=== PATIENT | female | born 1985 | race Caucasian/White ===

== ENCOUNTER → 2016-06-19 | Outpatient (CLI) | payer OTHER | END | disposition home or self-care (01) | LOC: LABWHC1 10:49 | PROVIDERS: ATTEND Obstetrics & Gynecology | DX: N91.2 Amenorrhea, unspecified (principal) | CPT/HCPCS: 36415; 84443 ==

== ENCOUNTER 2020-01-31 16:51 | Emergency (ER) | payer OTHER ==
[2020-01-31 16:54] VITALS: RESP 18
--- NOTE | 2020-01-31 17:58 | ED ---
General Adult HPI - General Chief complaint: Extremity Problem,Nontraumatic Stated complaint: Leg Pain Time Seen by Provider: 01/31/20 16:57 Source: patient, RN notes reviewed Mode of arrival: ambulatory Limitations: no limitations - History of Present Illness Initial comments: 34-year-old female presents to the emergency room for a chief complaint of left calf pain. Patient reports that she has had left calf pain since this morning. Patient states 5 days ago she had a [address] to [place]. States she drove back 6 hours yesterday. This morning is when she noticed the pain and swelling to her calf. Her friend told her it could be a blood clot so she came into the ER. Patient denies any shortness of breath or chest pain.Patient has no other complaints at this time including shortness of breath, chest pain, abdominal pain, nausea or vomiting, headache, or visual changes. - Related Data Home Medications Medication Instructions Recorded Confirmed No Known Home Medications 01/31/20 01/31/20 Allergies Allergy/AdvReac Type Severity Reaction Status Date / Time Penicillins Allergy Intermediate Rash/Hives Verified 01/31/20 18:39 cefaclor [From Ceclor] Allergy Unknown Rash/Hives Verified 01/31/20 18:39 Review of Systems ROS Statement: Those systems with pertinent positive or pertinent negative responses have been documented in the HPI. ROS Other: All systems not noted in ROS Statement are negative. Past Medical History Past Medical History: Osteoarthritis (OA) Additional Past Medical History / Comment(s): BULGING DISC, IRREGULAR MENSTRUAL PERIODS History of Any Multi-Drug Resistant Organisms: MRSA Date of last positivie culture/infection: 08/27/15 MDRO Source:: LEFT ARM Past Surgical History: Adenoidectomy, Section, Cholecystectomy, Tonsillectomy Additional Past Surgical History / Comment(s): T & A A CHILD, BUNIONECTOMY X2 RT & X1 LT, CERVICAL CONE BX. Past Anesthesia/Blood Transfusion Reactions: No Reported Reaction Past Psychological History: ADD/ADHD, Anxiety Smoking Status: Never smoker Past Alcohol Use History: None Reported Past Drug Use History: None Reported - Past Family History Mother Additional Family Medical History / Comment(s): heart blockages, fibroids to ovaries General Exam Limitations: no limitations General appearance: alert, in no apparent distress Head exam: Present: atraumatic, normocephalic, normal inspection Eye exam: Present: normal appearance, PERRL, EOMI. Absent: scleral icterus, conjunctival injection, periorbital swelling ENT exam: Present: normal exam, mucous membranes moist Neck exam: Present: normal inspection, full ROM. Absent: tenderness, meningismus, lymphadenopathy Respiratory exam: Present: normal lung sounds bilaterally. Absent: respiratory distress, wheezes, rales, rhonchi, stridor Cardiovascular Exam: Present: regular rate, normal rhythm, normal heart sounds. Absent: systolic murmur, diastolic murmur, rubs, gallop, clicks GI/Abdominal exam: Present: soft, normal bowel sounds. Absent: distended, tenderness, guarding, rebound, rigid Extremities exam: Present: full ROM (Full range of motion left lower extremity.), normal capillary refill (Capillary refill less than 2 seconds, DP pulse and PT pulse 2+ in the left lower extremity.), calf tenderness (Calf tenderness noted in the left lower extremity, minimal edema, no erythema.), other (Sensation intact left lower extremity.). Absent: tenderness, pedal edema, joint swelling Course Vital Signs 01/31/20 01/31/20 16:52 18:04 Temperature 98.3 F Pulse Rate 111 H 89 Respiratory 18 Rate Blood Pressure 146/95 O2 Sat by Pulse 99 97 Oximetry Medical Decision Making - Medical Decision Making Neurovascular status intact in the left lower extremity. Minimal calf tenderness and edema. No erythema or increased warmth. No evidence of infection. Ultrasound shows no evident DVT. Patient does not recall any injury. Patient may have cystoscopy in the knee or strain. Recommend she follow up with her doctor. I will also give her follow-up to orthopedics. She will return here for any worsening symptoms. Disposition Clinical Impression: Calf pain Disposition: HOME SELF-CARE Condition: Good Instructions (If sedation given, give patient instructions): Leg Pain (ED) Additional Instructions: Please take Motrin and Tylenol for pain. Please follow-up with your doctor in one to 2 days. You may also follow up with orthopedics. Return for any worsening symptoms. Is patient prescribed a controlled substance at d/c from ED?: No Referrals: Lauren Potter DO [Primary Care Provider] - 1-2 days Mendez Jovel DO [Doctor of Osteopathic Medicine] - 1-2 days Time of Disposition: 19:08
--- NOTE | 2020-01-31 18:37 | US ---
EXAMINATION TYPE: US venous doppler duplex LE LT DATE OF EXAM: 01/31/2020 6:28 PM COMPARISON: NONE CLINICAL HISTORY: dvt?. left leg pain SIDE PERFORMED: left TECHNIQUE: The lower extremity deep venous system is examined utilizing real time linear array sonog dwain with graded compression, doppler sonography and color-flow sonography. VESSELS IMAGED: Common Femoral Vein Deep Femoral Vein Greater Saphenous Vein * Femoral Vein Popliteal Vein Small Saphenous Vein * Proximal Calf Veins (* superficial vessels) There is normal flow, compressibility, vascular waveforms. Left Leg: No evidence of DVT IMPRESSION: No evident deep venous thrombosis at or above the left knee
[2020-01-31 19:23] VITALS: BP 117/69; PULSE 69; TEMP 98
== END 2020-01-31 19:31 | disposition home or self-care (01) ==
LOC: EC 16:51
DX: M79.662 Pain in left lower leg (principal); R60.0 Localized edema; Z88.0 Allergy status to penicillin; Z88.1 Allergy status to other antibiotic agents; Z86.14 Personal history of Methicillin resistant Staphylococcus aureus infection; X50.3XXA Overexertion from repetitive movements, initial encounter
CPT/HCPCS: 99283

== ENCOUNTER → 2020-02-01 | Outpatient (CLI) | payer OTHER | END | disposition home or self-care (01) | LOC: LABWHC1 11:52 | PROVIDERS: ATTEND Family Medicine | DX: Z01.818 Encounter for other preprocedural examination (principal) | CPT/HCPCS: U0003; C9803 ==

== ENCOUNTER 2020-05-07 10:52 | Emergency (ER) | payer OTHER ==
[2020-05-07 10:58] VITALS: RESP 18; TEMP 98.1
--- NOTE | 2020-05-07 11:01 | ED ---
Chest Pain HPI - General Chief Complaint: Chest Pain Stated Complaint: Chest and Abdominal pain Time Seen by Provider: 05/07/20 10:59 Source: patient Mode of arrival: ambulatory Limitations: no limitations - History of Present Illness Initial Comments: 34-year-old male presents to the emergency department with a chief complaint of abdominal pain. States the pain began this morning located in the epigastric abdominal region without any radiation. States the pain is constant and sharp in nature. Patient reports the pain does not appear to the postprandial period she does feel nauseated but did eat without any difficulties. No vomiting or diarrhea. History of cholecystectomy from several years ago. Also has tubal ligation. Denies any hematuria, hematochezia or melena. Patient does have history of GERD, she took Protonix and famotidine with no significant improvement in symptoms. Denies any fevers or chills. Denies any chest pain or shortness of breath.patient concerned for hiatal hernia - Related Data Home Medications Medication Instructions Recorded Confirmed Famotidine 20 mg PO DAILY 05/07/20 05/07/20 Omeprazole 20 mg PO DAILY 05/07/20 05/07/20 Allergies Allergy/AdvReac Type Severity Reaction Status Date / Time Penicillins Allergy Intermediate Rash/Hives Verified 05/07/20 11:52 cefaclor [From Ceclor] Allergy Unknown Rash/Hives Verified 05/07/20 11:52 Review of Systems ROS Statement: Those systems with pertinent positive or pertinent negative responses have been documented in the HPI. ROS Other: All systems not noted in ROS Statement are negative. EKG Findings - EKG Comments: EKG Findings:: Sinus rhythm with no ST or T-wave changes. Ventricular rate 67, ND 186, QRS 86, QTC 339. Past Medical History Past Medical History: Osteoarthritis (OA) Additional Past Medical History / Comment(s): BULGING DISC, IRREGULAR MENSTRUAL PERIODS History of Any Multi-Drug Resistant Organisms: MRSA Date of last positivie culture/infection: 08/27/15 MDRO Source:: LEFT ARM Past Surgical History: Adenoidectomy, Section, Cholecystectomy, Tonsillectomy Additional Past Surgical History / Comment(s): T & A A CHILD, BUNIONECTOMY X2 RT & X1 LT, CERVICAL CONE BX. Past Anesthesia/Blood Transfusion Reactions: No Reported Reaction Past Psychological History: ADD/ADHD, Anxiety Smoking Status: Never smoker Past Alcohol Use History: None Reported Past Drug Use History: None Reported - Past Family History Mother Additional Family Medical History / Comment(s): heart blockages, fibroids to ovaries General Exam Limitations: no limitations General appearance: alert, in no apparent distress, obese Head exam: Present: atraumatic, normocephalic, normal inspection Eye exam: Present: normal appearance, PERRL, EOMI Pupils: Present: normal accommodation ENT exam: Present: normal exam, normal oropharynx, mucous membranes moist Neck exam: Present: normal inspection, full ROM. Absent: tenderness, lymphadenopathy Respiratory exam: Present: normal lung sounds bilaterally. Absent: respiratory distress, wheezes, rales, rhonchi, stridor, chest wall tenderness (No reproducible chest pain) Cardiovascular Exam: Present: regular rate, normal rhythm, normal heart sounds GI/Abdominal exam: Present: soft, tenderness (Epigastric abdominal tenderness). Absent: distended, guarding, rebound, rigid Extremities exam: Present: normal inspection, full ROM, normal capillary refill. Absent: tenderness, pedal edema Back exam: Present: normal inspection, full ROM. Absent: tenderness, CVA tenderness (R), CVA tenderness (L) Neurological exam: Present: alert, oriented X3, normal gait Psychiatric exam: Present: normal affect, normal mood Skin exam: Present: warm, dry, intact, normal color Course Vital Signs 05/07/20 10:55 Temperature 98.1 F Pulse Rate 79 Respiratory 18 Rate Blood Pressure 130/77 O2 Sat by Pulse 98 Oximetry Chest Pain MDM - MDM 34-year-old female presents to emergency Department with a chief complaint abdominal pain. On physical examination, epigastric abdominal tenderness. She doesn't have a gallbladder. CBC unremarkable. CMP reveals mild transaminitis. UA unremarkable. EKG was showing a sinus rhythm with no ST or T-wave changes. CT abdomen and pelvis reveals no acute processes. There is a concern for hiatal hernia. Patient is still able to tolerate orals. Patient was given IV fluids, GI cocktail. On reevaluation, she did report some improvement in symptoms but not fully resolved. She was given tramadol. Will be discharged with the tramadol starter pack. Advised to follow with the primary care physician. Strict return parameters were thoroughly discussed the patient is understanding and agreeable. Case discussed with Dr. Singleton. Disposition Clinical Impression: Epigastric abdominal pain Disposition: HOME SELF-CARE Condition: Stable Instructions (If sedation given, give patient instructions): Hiatal Hernia (DC) Additional Instructions: Follow-up with the primary care physician. Return to emergency department if symptoms worsen. Is patient prescribed a controlled substance at d/c from ED?: No Referrals: Lauren Potter DO [Primary Care Provider] - 1-2 days Time of Disposition: 13:15
[2020-05-07] MEDS ORDERED: ONDANSETRON 4 MG/2 ML VIAL IVP STA (11:10)
[2020-05-07] MEDS ORDERED: SODIUM CHLORIDE 0.9% 1,000 ML IV STA (11:10)
[2020-05-07] MEDS ORDERED: MAG HYDROX/AL HYDROX/SIMETH 30 ML, HYOSCYAMINE ELIXIR 10 ML, LIDOCAINE VISCOUS 2% 10 ML PO STA ×3 (11:11)
[2020-05-07 11:54] LABS: ALT 43 U/L (4-34); AST 44 U/L (14-36); African American GFR (CKD) >90 (>60 ml/min/1.73 sqM); Albumin 4.6 g/dL (3.5-5.0); Alkaline Phosphatase 116 U/L (38-126); Amylase 76 U/L (30-110); Anion Gap 8 mmol/L; Blood Urea Nitrogen 13 mg/dL (7-17); Calcium 9.3 mg/dL (8.4-10.2); Carbon Dioxide 25 mmol/L (22-30); Chloride 105 mmol/L (98-107); Glucose 114 mg/dL (74-99); Lipase 65 U/L (23-300); Non-African American GFR(CKD) >90 (>60 ml/min/1.73 sqM); Potassium 4.5 mmol/L (3.5-5.1); Sodium 138 mmol/L (137-145); Total Bilirubin 0.9 mg/dL (0.2-1.3); Total Protein 8.3 g/dL (6.3-8.2)
[2020-05-07 12:07] LABS: Appearance,Urine Cloudy (Clear); Bacteria,Urine Rare /hpf; Bilirubin,Urine Negative (Negative); Blood,Urine Negative (Negative); Color,Urine Yellow; Glucose,Urine (UA) Negative (Negative); Ketones,Urine Negative (Negative); Leukocyte Esterase,Urine Negative (Negative); Mucus,Urine Rare /hpf; Nitrite,Urine Negative (Negative); PH, Urine 6.5 (5.0-8.0); Protein,Urine Negative (Negative); RBC,Urine 2 /hpf (0-5); Specific Gravity,Urine 1.022 (1.001-1.035); Squamous Epithelial Cell,Urine 5 /hpf (0-4); Urobilinogen,Urine <2.0 mg/dL (<2.0); WBC,Urine 3 /hpf (0-5)
[2020-05-07 12:09] LABS: HCT 40.6 % (34.0-46.0); HGB 14.1 gm/dL (11.4-16.0); MCH 29.4 pg (25.0-35.0); MCHC 34.7 g/dL (31.0-37.0); MCV 84.7 fL (80.0-100.0); Mean Platelet Volume 7.6; Platelet Count 283 k/uL (150-450); RDW 13.7 % (11.5-15.5); WBC 8.8 k/uL (3.8-10.6)
[2020-05-07] MEDS ORDERED: traMADol 50 MG TAB PO STA (12:17)
[2020-05-07] MEDS ORDERED: diphenhydrAMINE 50 MG/ML 1 ML VIAL IVP STA (12:18)
[2020-05-07] MEDS ORDERED: FAMOTIDINE 20 MG/2 ML VIAL IV STA (12:18)
[2020-05-07] MEDS ORDERED: methylPREDNISolone SOD SUCCI 125 MG/2 ML VIAL IV STA (12:18)
[2020-05-07 12:50] LABS: Band Neutrophils % 1 %; Eosinophils # (M) 0.18 k/uL (0-0.7); Monocytes # (M) 0.44 k/uL (0-1.0); Neutrophils % (M) 59 %; Nucleated Red Blood Cells 0 /100 WBC (0-0); Total Cells Counted 100
--- NOTE | 2020-05-07 13:01 | CT ---
EXAMINATION TYPE: CT abdomen pelvis w con DATE OF EXAM: 05/07/2020 COMPARISON: None HISTORY: Left sided numbness and dizziness CT DLP: 1705.2 mGycm Automated exposure control for dose reduction was used. TECHNIQUE: Helical acquisition of images was performed from the lung bases through the pelvis. CONTRAST: Performed without Oral Contrast and with IV Contrast, patient injected with 100 mL of Isovue 300. FINDINGS: LUNG BASES: No significant abnormality is appreciated. LIVER/GB: No significant abnormality is appreciated. There is surgical absence of the gallbladder PANCREAS: No significant abnormality is seen. SPLEEN: No significant abnormality is seen. ADRENALS: No significant abnormality is seen. KIDNEYS: No significant abnormality is seen. FREE AIR: No free air is visualized. RETROPERITONEAL ADENOPATHY: None visualized REPRODUCTIVE ORGANS: No significant abnormality is seen URINARY BLADDER: No significant abnormality is seen. PELVIC ADENOPATHY: None visualized. OSSEOUS STRUCTURES: No significant abnormality is seen. BOWEL: No significant abnormality is seen. IMPRESSION: STATUS POST CHOLECYSTECTOMY. NO SIGNIFICANT ABNORMALITY SEEN.
[2020-05-07] MEDS ORDERED: traMADol 50 MG STARTER PACK 3 TAB BTL PO STA (13:25)
[2020-05-07 13:34] VITALS: BP 125/55; PULSE 61
== END 2020-05-07 13:34 | disposition home or self-care (01) ==
LOC: EC 10:52
DX: R10.13 Epigastric pain (principal); K21.9 Gastro-esophageal reflux disease without esophagitis; M19.90 Unspecified osteoarthritis, unspecified site; Z90.49 Acquired absence of other specified parts of digestive tract; Z90.09 Acquired absence of other part of head and neck
CPT/HCPCS: 36415; 93005; 80053; 82150; 83690; 85025; 81001; 81025; 74177; 99284; 96374; 96361; J2405; Q9967

== ENCOUNTER 2020-06-29 09:12 | Day surgery (SDC) | payer OTHER ==
[2020-06-27 10:07] VITALS: BMI 43.9
[~2020-06-29 09:12] MED LIST: LACTATED RINGERS 1,000 ML IV SCH
[2020-06-29 09:42] VITALS: TEMP 98.3
[2020-06-29] MEDS ORDERED: LIDOCAINE 1% (10MG/ML) FOR IV START INTRADERMA ONE (09:45)
--- NOTE | 2020-06-29 10:53 | P.GSHP ---
History of Present Illness H&P Date: 06/29/20 Chief Complaint: Epigastric pain Is a 35-year-old female presents today for EGD. She's had complaints of epigastric pain. Past Medical History Past Medical History: Asthma, GERD/Reflux, Osteoarthritis (OA) Additional Past Medical History / Comment(s): HX OF EXERCISE INDUCED ASTHMA., BULGING DISC, , LOOSE STOOLS SINCE GALL BLADDER REMOVED. States has a Hiatal Hernia. 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 Past Anesthesia/Blood Transfusion Reactions: No Reported Reaction Smoking Status: Never smoker - Past Family History Sister(s) Family Medical History: Blood Disorder Additional Family Medical History / Comment(s): ITP, SPLEEN REMOVED Medications and Allergies Home Medications Medication Instructions Recorded Confirmed Type Famotidine 20 mg PO DAILY 05/07/20 06/27/20 History Omeprazole 20 mg PO DAILY 05/07/20 06/27/20 History Allergies Allergy/AdvReac Type Severity Reaction Status Date / Time Penicillins Allergy Intermediate Rash/Hives Verified 06/29/20 09:32 cefaclor [From Ceclor] Allergy Unknown Rash/Hives Verified 06/29/20 09:32 Surgical - Exam Vital Signs Temp Pulse Resp BP Pulse Ox 98.3 F 70 18 136/60 99 06/29/20 09:38 06/29/20 09:38 06/29/20 09:38 06/29/20 09:38 06/29/20 09:38 - General well developed, well nourished, no distress - Eyes PERRL - ENT normal pinna - Neck no masses - Respiratory normal expansion - Cardiovascular Rhythm: regular - Abdomen Abdomen: soft, non tender Assessment and Plan Assessment: Epigastric pain. We'll perform EGD.
[2020-06-29] MEDS ORDERED: PROPOFOL 10 MG/ML 20 ML VIAL IV ONE (10:57)
[2020-06-29] MEDS ORDERED: LIDOCAINE 1% INJ 10MG/ML (20 ML MDV) ONE (10:57)
--- NOTE | 2020-06-29 11:01 | P.OP ---
Date of Procedure: 06/29/20 Preoperative Diagnosis: Epigastric pain Postoperative Diagnosis: GERD Hiatal hernia Esophagitis Procedure(s) Performed: EGD Anesthesia: MAC Surgeon: Kevin Hagan Pathology: other (Antrum, esophagus) Condition: stable Disposition: PACU Description of Procedure: The patient's placed on the endoscopy table in the lateral position. She received IV sedation. The gastro-/oropharynx passed in the esophagus into the stomach. Scope was placed through the pylorus. The first and second portion duodenum appeared normal. Scope was then brought back the antrum this. Mildly inflamed. A biopsies performed. The scope was unretroflexed and the remainder of the stomach appeared normal. The patient had a small hiatal hernia. The GE junction was at 38 cm. The distal esophagus appeared inflamed and a biopsies performed. The proximal esophagus appeared normal. Scope was withdrawn for patient.
[2020-06-29 11:53] VITALS: BP 126/82; PULSE 76; RESP 16
== END 2020-06-29 11:34 | disposition home or self-care (01) ==
LOC: ORWHC2ENDO 09:12
PROVIDERS: ATTEND Surgery
DX: K29.50 Unspecified chronic gastritis without bleeding (principal); K44.9 Diaphragmatic hernia without obstruction or gangrene; K21.9 Gastro-esophageal reflux disease without esophagitis; M19.90 Unspecified osteoarthritis, unspecified site; J45.990 Exercise induced bronchospasm; Z86.2 Personal history of diseases of the blood and blood-forming organs and certain disorders involving the immune mechanism; Z86.14 Personal history of Methicillin resistant Staphylococcus aureus infection; Z90.89 Acquired absence of other organs; Z98.891 History of uterine scar from previous surgery; Z90.49 Acquired absence of other specified parts of digestive tract; Z98.890 Other specified postprocedural states; Z83.2 Family history of diseases of the blood and blood-forming organs and certain disorders involving the immune mechanism; Z79.899 Other long term (current) drug therapy; Z88.1 Allergy status to other antibiotic agents; Z88.0 Allergy status to penicillin
CPT/HCPCS: 81025; 88305; 88342; 43239; J2001; J2704

== ENCOUNTER → 2020-07-19 | Outpatient (CLI) | payer OTHER ==
[2020-07-19 15:19] LABS: Basophils % (A) 0 %; Eosinophils # (A) 0.1 k/uL (0-0.7); Eosinophils % (A) 1 %; HCT 38.1 % (34.0-46.0); HGB 13.6 gm/dL (11.4-16.0); Lymphocytes # (A) 2.6 k/uL (1.0-4.8); Lymphocytes % (A) 28 %; MCH 30.5 pg (25.0-35.0); MCHC 35.6 g/dL (31.0-37.0); MCV 85.5 fL (80.0-100.0); Mean Platelet Volume 7.6; Monocytes # (A) 0.5 k/uL (0-1.0); Monocytes % (A) 6 %; Neutrophils # (A) 5.9 k/uL (1.3-7.7); Neutrophils % (A) 64 %; Platelet Count 287 k/uL (150-450); RBC 4.45 m/uL (3.80-5.40); RDW 13.3 % (11.5-15.5); WBC 9.2 k/uL (3.8-10.6)
== END | disposition home or self-care (01) ==
LOC: LABPAT 13:59
PROVIDERS: ATTEND Surgery
DX: Z01.812 Encounter for preprocedural laboratory examination (principal)
CPT/HCPCS: 36415; 85025

== ENCOUNTER 2020-07-21 08:06 | Day surgery (SDC) | payer OTHER ==
[~2020-07-21 08:06] MED LIST changes: +ACETAMINOPHEN TAB 500 MG TAB PO PRN; +CLINDAMYCIN 900 MG in DEXTROSE 5% IN WATER 50 ML IVPB PRN; +GENTAMICIN 340 MG in SODIUM CHLORIDE 0.9% 100 ML IVPB PRN; +HEPARIN SODIUM,PORCINE/PF 5,000 UNIT/0.5 ML SYRINGE SQ PRN; -LACTATED RINGERS 1,000 ML IV SCH; +MIDAZOLAM 2 MG/2 ML VIAL IV PRN; +SCOPOLAMINE 1.5MG/72HR PATCH TRANSDERM ONE
[2020-07-21] MEDS: LACTATED RINGERS 1,000 ML IV SCH ×2 (08:54→09:54)
[2020-07-21] MEDS: ONDANSETRON 4 MG/2 ML VIAL IVP ONE ×2 (09:03→15:08)
[2020-07-21] MEDS: DEXAMETHASONE SOD PHOSPHATE 4 MG/ML 1 ML VIAL IV ONE ×2 (09:03→15:01)
--- NOTE | 2020-07-21 09:06 | P.GSHP ---
History of Present Illness H&P Date: 07/21/20 Chief Complaint: GERD This a 35-year-old female coming to GERD. Patient sees Dr. Sharma as outpatient.The patient has had long-standing problems with reflux esophagitis. The patient underwent recent EGD is found have evidence of esophagitis. Patient has been well informed on the procedure of laparoscopic Alex fundoplication. The patient is aware the risk of the conversion to the open procedure, risk of injury to the stomach, liver and spleen. The patient is also a risk of recurrent GERD and dysphagia symptoms. The patient understands there is a postoperative diet of full liquids for 2 weeks after surgery. Past Medical History Past Medical History: Asthma, GERD/Reflux, Osteoarthritis (OA) Additional Past Medical History / Comment(s): HX OF EXERCISE INDUCED ASTHMA., BULGING DISC, LOOSE STOOLS SINCE GALL BLADDER REMOVED. History of Any Multi-Drug Resistant Organisms: MRSA Date of last positivie culture/infection: 08/27/15 MDRO Source:: LEFT ARM Past Surgical History: Adenoidectomy, Section, Cholecystectomy, Tonsillectomy Additional Past Surgical History / Comment(s): EGD, T & A A CHILD, BUNIONECTOMY X2, CERVICAL CONE BX. Past Anesthesia/Blood Transfusion Reactions: No Reported Reaction Smoking Status: Never smoker - Past Family History Mother Family Medical History: No Reported History Additional Family Medical History / Comment(s): . Father Family Medical History: No Reported History Sister(s) Family Medical History: Blood Disorder Additional Family Medical History / Comment(s): ITP, SPLEEN REMOVED Medications and Allergies Home Medications Medication Instructions Recorded Confirmed Type Famotidine 20 mg PO DAILY 05/07/20 07/21/20 History Omeprazole 20 mg PO DAILY 05/07/20 07/21/20 History Allergies Allergy/AdvReac Type Severity Reaction Status Date / Time Penicillins Allergy Intermediate Rash/Hives Verified 07/21/20 08:36 cefaclor [From [facility]] Allergy Unknown Rash/Hives Verified 07/21/20 08:36 Surgical - Exam Vital Signs Temp Pulse Resp BP Pulse Ox 97.2 F L 69 20 141/81 98 07/21/20 08:41 07/21/20 08:41 07/21/20 08:41 07/21/20 08:41 07/21/20 08:41 - General well developed, well nourished, no distress - Eyes PERRL - ENT normal pinna - Neck no masses - Respiratory normal expansion - Cardiovascular Rhythm: regular - Abdomen Abdomen: soft, non tender Assessment and Plan Assessment: GERD. We'll perform laparoscopic Alex fundoplication.
[2020-07-21] MEDS ORDERED: MIDAZOLAM 2 MG/2 ML VIAL ONE (09:55)
[2020-07-21] MEDS ORDERED: SUCCINYLCHOLINE CHLORIDE 100 MG/5 ML SYR IV ONE (09:55)
[2020-07-21] MEDS ORDERED: KETOROLAC 15 MG/ML 1 ML VIAL ONE (09:55)
[2020-07-21] MEDS ORDERED: NEOSTIGMINE 1 MG/ML 10 ML VIAL ONE (09:55)
[2020-07-21] MEDS ORDERED: PROPOFOL 10 MG/ML 20 ML VIAL IV ONE (09:55)
[2020-07-21] MEDS ORDERED: ROCURONIUM 10 MG/ML (5 ML VIAL) IV ONE (09:55)
[2020-07-21] MEDS ORDERED: LIDOCAINE 1% INJ 10MG/ML (20 ML MDV) ONE (09:55)
[2020-07-21] MEDS ORDERED: fentaNYL (PF) 50 MCG/ML 2 ML AMP ONE (09:55)
[2020-07-21] MEDS ORDERED: GLYCOPYRROLATE 0.2 MG/ML 2 ML VIAL ONE (09:55)
[2020-07-21] MEDS ORDERED: BUPIVACAIN-EPI 0.5%-1:200,000 30 ML VIAL SQ ONE (10:23)
[2020-07-21] MEDS ORDERED: ONDANSETRON 4 MG/2 ML VIAL IVP PRN (11:06)
--- NOTE | 2020-07-21 11:06 | P.OP ---
Date of Procedure: 07/21/20 Preoperative Diagnosis: GERD Postoperative Diagnosis: GERD Procedure(s) Performed: Laparoscopic Alex fundoplication Anesthesia: MAC Surgeon: Kevin Hagan Estimated Blood Loss (ml): 5 Pathology: none sent Condition: stable Disposition: PACU Description of Procedure: The patient was placed on the operating table in the supine position. The patient received general anesthesia. And was placed in dorsal lithotomy position. The patient was prepped and draped in the usual sterile fashion. The skin incision sites were anesthetized with 1% local Xylocaine. The skin was incised in the left periumbilical area and then using a blade less 5 mm trocar under direct visualization panel cavity was entered. After adequate insufflation the laparoscope was then placed into the peritoneal cavity. Next a 5 mm trochars placed in the right epigastric position. Another 5 millimeter trocar the right lateral position. Another 5 millimeter trocar in the left lateral position a 5 mm trocar is placed in the left epigastric position. And then the initial 5 mm trocar was exchanged for a 10 mm trocar. The left lateral lobe liver was retracted. The hernia was seen. The crural defect was then dissected using the Harmonic scissors device. A 360 crural dissection was perf ormed the esophagus stomach was reduced back into the peritoneal Cavity. The crural defect was then closed using 2-0 Ethibond suture. Next the fundus of the stomach was mobilized using the [place] scissors device. and then a 58-[place]oven[place] bougie dilator was placed oropharynx passed into the esophagus and stomach the fundal plication wrap was then performed by grasping the fundus posteriorly and bringing it around the esophagus and stomach fundoplication was then performed using 2-0 Ethibond suture. Care was taken that the fundal location rested over top of the intra-abdominal esophagus. There was no injury seen to the stomach or esophagus. The dilator was then withdrawn. The abdomen was irrigated there is no bleeding seen. The trochars were then withdrawn and then skin incision sites were closed using 3-0 Monocryl suture Steri-Strips are applied. Patient thought procedure well and sent to recovery room in stable condition.
[2020-07-21] MEDS: HYDROmorphone 0.5 MG/0.5 ML SYRINGE IVP PRN ×2 (11:29→11:40)
[2020-07-21 14:37] VITALS: BMI 43.0
[2020-07-21] MEDS: DEXAMETHASONE SOD PHOSPHATE 4 MG/ML 1 ML VIAL IV SCH ×3 (15:07→23:50)
[2020-07-21] MEDS: METOCLOPRAMIDE 5 MG/ML 2 ML VIAL IVP SCH ×3 (15:07→23:50)
[2020-07-21] MEDS: D5-0.45% NACL WITH KCL 20MEQ/L 1,000 ML IV SCH ×2 (15:08→22:52)
--- NOTE | 2020-07-21 17:15 | P.CONS ---
History of Present Illness - Reason for Consult Perioperative complication management - History of Present Illness Patient is a pleasant 35-year-old female was admitted with the uncontrolled gastroesophageal reflux disease for elective Alex's fundoplication. Patient subsequently underwent surgery patient was having some pain in the shoulder blade area secondary to the gas insufflation during surgery. Patient denied any fever chills nausea vomiting and vomiting dysuria abdominal surgical sites are clean. Review of Systems REVIEW OF SYSTEMS: CONSTITUTIONAL: No fever, no malaise, no fatigue. HEENT: No recent visual problems or hearing problems. Denied any sore throat. CARDIOVASCULAR: No chest pain, orthopnea, PND, no palpitations, no syncope. PULMONARY: No shortness of breath, no cough, no hemoptysis. GASTROINTESTINAL: No diarrhea, no nausea, no vomiting, no abdominal pain. NEUROLOGICAL: No headaches, no weakness, no numbness. HEMATOLOGICAL: Denies any bleeding or petechiae. GENITOURINARY: Denies any burning micturition, frequency, or urgency. MUSCULOSKELETAL/RHEUMATOLOGICAL: Denies any joint pain, swelling, or any muscle pain. ENDOCRINE: Denies any polyuria or polydipsia. The rest of the 14-point review of systems is negative. Past Medical History Past Medical History: Asthma, GERD/Reflux, Osteoarthritis (OA) Additional Past Medical History / Comment(s): HX OF EXERCISE INDUCED ASTHMA., BULGING DISC, LOOSE STOOLS SINCE GALL BLADDER REMOVED. History of Any Multi-Drug Resistant Organisms: MRSA Year Discovered:: 08/27/15 MDRO Source:: LEFT ARM Past Surgical History: Adenoidectomy, Section, Cholecystectomy, Tonsillectomy Additional Past Surgical History / Comment(s): EGD, T & A A CHILD, BUNIONECTOMY X2, CERVICAL CONE BX. Past Anesthesia/Blood Transfusion Reactions: No Reported Reaction Past Psychological History: Anxiety Additional Psychological History / Comment(s): "MOOD PROBLEMS" Smoking Status: Never smoker Past Alcohol Use History: Rare Past Drug Use History: None Reported - Past Family History Mother Family Medical History: No Reported History Additional Family Medical History / Comment(s): . Father Family Medical History: No Reported History Sister(s) Family Medical History: Blood Disorder Additional Family Medical History / Comment(s): ITP, SPLEEN REMOVED Medications and Allergies Home Medications Medication Instructions Recorded Confirmed Type Famotidine 20 mg PO DAILY 05/07/20 07/21/20 History Omeprazole 20 mg PO DAILY 05/07/20 07/21/20 History Allergies Allergy/AdvReac Type Severity Reaction Status Date / Time Penicillins Allergy Intermediate Rash/Hives Verified 07/21/20 13:45 [facility] [[facility] Allergy Unknown Rash/Hives Verified 07/21/20 13:45 Physical Exam Vitals: Vital Signs Temp Pulse Pulse Resp BP BP Pulse Ox 07/21/20 16:05 97.9 F 72 16 101/67 95 07/21/20 15:05 71 16 103/63 96 07/21/20 14:05 60 16 100/66 96 07/21/20 13:35 59 L 16 102/68 96 07/21/20 13:05 68 16 101/64 96 07/21/20 12:50 61 16 97/65 94 L 07/21/20 12:35 65 16 103/71 97 07/21/20 12:20 97.6 F 65 16 112/74 93 L 07/21/20 11:53 63 16 148/84 96 07/21/20 11:38 81 16 130/70 94 L 07/21/20 11:23 84 16 130/68 100 07/21/20 11:08 97.4 F L 96 16 133/65 97 07/21/20 08:41 97.2 F L 69 20 141/81 98 Intake and Output 07/21/20 07/21/20 07/21/20 06:59 14:59 22:59 Intake Total 916 Output Total 10 Balance 906 Intake: IV 856 Oral 60 Output: Estimated Blood Loss 10 Other: Weight 100 kg PHYSICAL EXAMINATION: GENERAL: The patient is alert and oriented x3, not in any acute distress. Well developed, well nourished. HEENT: Pupils are round and equally reacting to light. EOMI. No scleral icterus. No conjunctival pallor. Normocephalic, atraumatic. No pharyngeal erythema. No thyromegaly. CARDIOVASCULAR: S1 and S2 present. No murmurs, rubs, or gallops. PULMONARY: Chest is clear to auscultation, no wheezing or crackles. ABDOMEN: Soft, nontender, nondistended, normoactive bowel sounds. No palpable organomegaly. Surgical site clean MUSCULOSKELETAL: No joint swelling or deformity. EXTREMITIES: No cyanosis, clubbing, or pedal edema. NEUROLOGICAL: Gross neurological examination did not reveal any focal deficits. SKIN: No rashes. Assessment and Plan Plan: -Gastroesophageal reflux disease: Uncontrolled symptoms shouldn't had Alex's fundoplication. Pain is well-controlled -DVT prophylaxis on Lovenox
[2020-07-21] MEDS ORDERED: ACETAMINOPHEN TAB 325 MG TAB PO PRN (18:35)
[2020-07-21] MEDS: ACETAMINOPHEN ORAL SUSP (PEDS) 3,840 MG/120 ML BOTTLE PO PRN (18:49)
[2020-07-21] MEDS: HYDROmorphone 1 MG/ML 1 ML SYRINGE IVP PRN (22:47)
[2020-07-22] MEDS: DEXAMETHASONE SOD PHOSPHATE 4 MG/ML 1 ML VIAL IV SCH (06:16)
[2020-07-22] MEDS: METOCLOPRAMIDE 5 MG/ML 2 ML VIAL IVP SCH (06:17)
[2020-07-22] MEDS: HYDROmorphone 1 MG/ML 1 ML SYRINGE IVP PRN (06:38)
--- NOTE | 2020-07-22 08:28 | FL ---
EXAMINATION TYPE: FL esophagus cervic/pharynx DATE OF EXAM: 07/22/2020 LIMITED UGI-ESOPHAGRAM: CLINICAL HISTORY: Epigastric pain, hiatal hernia, Kevon fundoplication surgery yesterday. TECHNIQUE: Limited esophagram is performed utilizing 20 oz of Isovue-370. A total of 25 seconds of f luoroscopic time was utilized during procedure and 10 images obtained. Comparison: CT abdomen May 07, 2020 FINDINGS: The patient swallowed contrast without difficulty or delay. Esophageal peristalsis and mo tility are within normal limits. There is good flow of contrast along the diaphragmatic hiatus into t he stomach, there is no evidence of contrast extravasation to suggest leak. No persistent hiatal ahmet ia is seen. Patient remains asymptomatic. Cholecystectomy clips incidentally redemonstrated. IMPRESSION: No evidence of leak or significant obstruction status post Kevon fundoplication surgery earlier today.
[2020-07-22] MEDS ORDERED: ENOXAPARIN 40 MG/0.4 ML SYRINGE SQ SCH (09:00)
[2020-07-22 09:28] VITALS: BP 106/65; PULSE 61; RESP 18; TEMP 98.2
--- NOTE | 2020-07-22 10:42 | P.DS ---
Providers Expected date of discharge: 07/22/20 Attending physician: Kevin aHgan Consults: 07/21/20 11:06 Consult Physician Routine Consulting Provider: Bernardo Stuart Consult Reason/Comments: Medical management Do you want consulting provider notified?: Yes Primary care physician: Demarco Sharma - Discharge Diagnosis(es) (1) Gastroesophageal reflux disease Current Visit: Yes Status: Acute (2) S/P Alex fundoplication (without gastrostomy tube) procedure Current Visit: Yes Status: Acute (3) Morbid obesity due to excess calories Current Visit: Yes Status: Acute (4) Body mass index 40.0-44.9, adult Current Visit: Yes Status: Acute Hospital Course: CHIEF COMPLAINT: Gastroesophageal reflux disease HISTORY OF PRESENT ILLNESS: The patient is a 35-year-old status post repair of recurrent hiatal hernia repair, 07/21/20. No dysphagia. She is tolerating diet. ROS: No reports of nausea and vomiting. No fevers or chills. No new chest pain. No productive sputum PHYSICAL EXAM: VITAL SIGNS: Reviewed CONSTITUTIONAL: Well developed and in no acute distress. EYES: Conjuctivae without sclera icterus. Extraocular movements grossly intact. HEAD, EARS, NOSE, THROAT: Moist buccal mucosa. Head is atraumatic, normocephalic. Hears conversational speech. No nasal drainage. RESPIRATORY: Non-labored respirations and equal bilateral excursions. CARDIOVASCULAR: Palpable 2+ radial pulses. ABDOMEN: Intact MUSCULOSKELETAL: No gross deformity of the lower extremities noted. No clubbing. No cyanosis. SKIN: Good skin turgor. Well perfused. NEUROLOGIC: Cranial nerves II through XII grossly intact. No focal or lateralizing signs. PSYCH: Appropriate affect. Alert and oriented to person, place and time. STUDIES: Reviewed. Esophagram independently seen without obstruction. CLINICAL LABS: Reviewed ASSESSMENT: 1. Incarcerated recurrent hiatal hernia repair 2. Gastroesophageal reflux disease. PLAN: 1. Overall stable for discharge 2. Alex diet reviewed with dietitian 3. Return to work forms to be filled out in the office upon follow-up Patient Condition at Discharge: Good Plan - Discharge Summary Discharge Rx Participant: No New Discharge Prescriptions: New bisacodyL [Dulcolax] 5 mg PO DAILY PRN #10 tablet.dr SILVERIO Reason: Constipation Ondansetron Odt [Zofran Odt] 4 mg PO Q8HR PRN #9 tab PRN Reason: Nausea Simethicone 40 mg/0.6 ml Drops [Mylicon Drops] 40 mg PO PCHS PRN #30 ml PRN Reason: Gas Acetaminophen Oral Susp [Tylenol Oral Susp] 500 mg PO Q4-6H PRN #400 ml PRN Reason: Pain Continue Famotidine 20 mg PO DAILY Omeprazole 20 mg PO DAILY Discharge Medication List Famotidine 20 mg PO DAILY 05/07/20 [History] Omeprazole 20 mg PO DAILY 05/07/20 [History] Acetaminophen Oral Susp [Tylenol Oral Susp] 500 mg PO Q4-6H PRN #400 ml 07/22/20 [Rx] Ondansetron Odt [Zofran Odt] 4 mg PO Q8HR PRN #9 tab 07/22/20 [Rx] Simethicone 40 mg/0.6 ml Drops [Mylicon Drops] 40 mg PO PCHS PRN #30 ml 07/22/20 [Rx] bisacodyL [Dulcolax] 5 mg PO DAILY PRN #10 tablet. 07/22/20 [Rx] Follow up Appointment(s)/Referral(s): Kevin Hagan MD [STAFF PHYSICIAN] - 1 Week Patient Instructions/Handouts: Laparoscopic Hiatal Hernia Repair (DC) Activity/Diet/Wound Care/Special Instructions: Diet per dietitian. Lifting instructions per surgeon. Discharge Disposition: HOME SELF-CARE
[2020-07-22] MEDS: ACETAMINOPHEN ORAL SUSP (PEDS) 3,840 MG/120 ML BOTTLE PO PRN (11:07)
--- NOTE | 2020-07-22 17:07 | P.PN ---
Subjective patient is clinically doing well passing gas patient probably will be discharged today. Constitutional: Denied any fatigue denied any fever. Cardio vascular: denied any chest pain, palpitations Gastrointestinal denied any nausea vomiting Pulmonary: Denied any shortness of breath cough Neurologic denied any new focal deficits All inpatient medications were reviewed and appropriate changes in these medications as dictated in the interval history and assessment and plan. Objective - Vital Signs Vital signs: Vital Signs Temp 98.2 F 07/22/20 09:28 Pulse 61 07/22/20 09:28 Resp 18 07/22/20 09:28 BP 106/65 07/22/20 09:28 Pulse Ox 95 07/22/20 09:28 Intake & Output 07/21/20 07/22/20 07/22/20 18:59 06:59 18:59 Intake Total 916 400 Output Total 10 Balance 906 400 Weight 100 kg Intake: IV 856 Oral 60 400 Output: Estimated Blood Loss 10 Other: Voiding Method Toilet # Voids 1 3 2 - Exam PHYSICAL EXAMINATION: GENERAL: The patient is alert and oriented x3, not in any acute distress. Well developed, well nourished. HEENT: Pupils are round and equally reacting to light. EOMI. No scleral icterus. No conjunctival pallor. Normocephalic, atraumatic. No pharyngeal erythema. No thyromegaly. CARDIOVASCULAR: S1 and S2 present. No murmurs, rubs, or gallops. PULMONARY: Chest is clear to auscultation, no wheezing or crackles. ABDOMEN: Soft, nontender, nondistended, normoactive bowel sounds. No palpable organomegaly. MUSCULOSKELETAL: No joint swelling or deformity. EXTREMITIES: No cyanosis, clubbing, or pedal edema. NEUROLOGICAL: Gross neurological examination did not reveal any focal deficits. SKIN: No rashes. Assessment and Plan Plan: -Gastroesophageal reflux disease: Uncontrolled symptoms for which patient underwent Alex's fundoplication. Pain is well-controlledshe is being discharged today -DVT prophylaxis on Lovenox
== END 2020-07-22 11:50 | disposition home or self-care (01) ==
LOC: OR 08:06 → 6PED 11:06 → OR 07-22 11:50
PROVIDERS: ATTEND Surgery
DX: K21.9 Gastro-esophageal reflux disease without esophagitis (principal); J45.909 Unspecified asthma, uncomplicated; M19.90 Unspecified osteoarthritis, unspecified site; Z86.14 Personal history of Methicillin resistant Staphylococcus aureus infection; Z88.1 Allergy status to other antibiotic agents; Z88.0 Allergy status to penicillin; E66.01 Morbid (severe) obesity due to excess calories; Z79.899 Other long term (current) drug therapy
CPT/HCPCS: 43280; 81025; 74210; J2250; J1100 ×2; J2710; J2765 ×2; J2405; J2001; J3010; J1170 ×3; J1885; J0330; J2704; Q9967; J1644

== ENCOUNTER 2021-04-19 09:51 | Day surgery (SDC) | payer OTHER ==
[~2021-04-19 09:51] MED LIST changes: -ACETAMINOPHEN TAB 500 MG TAB PO PRN; -CLINDAMYCIN 900 MG in DEXTROSE 5% IN WATER 50 ML IVPB PRN; -GENTAMICIN 340 MG in SODIUM CHLORIDE 0.9% 100 ML IVPB PRN; -HEPARIN SODIUM,PORCINE/PF 5,000 UNIT/0.5 ML SYRINGE SQ PRN; +LACTATED RINGERS 1,000 ML IV SCH; +LIDOCAINE 1% (10MG/ML) FOR IV START INTRADERMA PRN; -MIDAZOLAM 2 MG/2 ML VIAL IV PRN; -SCOPOLAMINE 1.5MG/72HR PATCH TRANSDERM ONE
[2021-04-19 10:11] VITALS: TEMP 98
[2021-04-19] MEDS ORDERED: PROPOFOL 10 MG/ML 20 ML VIAL IV ONE (11:10)
--- NOTE | 2021-04-19 11:13 | P.GSHP ---
History of Present Illness H&P Date: 04/19/21 Chief Complaint: Diarrhea Is a 35-year-old female who presents today for colonoscopy. She's had issues with diarrhea. Past Medical History Past Medical History: Asthma, GERD/Reflux, Osteoarthritis (OA) Additional Past Medical History / Comment(s): HX OF EXERCISE INDUCED ASTHMA., BULGING DISC, LOOSE STOOLS SINCE GALL BLADDER REMOVED. History of Any Multi-Drug Resistant Organisms: MRSA Date of last positivie culture/infection: 08/27/15 MDRO Source:: LEFT ARM Past Surgical History: Adenoidectomy, Section, Cholecystectomy, Tonsillectomy, Tubal Ligation Additional Past Surgical History / Comment(s): EGD, T & A A CHILD, BUNIONECTOMY X2, CERVICAL CONE BX. Past Anesthesia/Blood Transfusion Reactions: No Reported Reaction Smoking Status: Never smoker - Past Family History Mother Family Medical History: No Reported History Additional Family Medical History / Comment(s): . Father Family Medical History: No Reported History Sister(s) Family Medical History: Blood Disorder Additional Family Medical History / Comment(s): ITP, SPLEEN REMOVED Medications and Allergies Home Medications Medication Instructions Recorded Confirmed Type No Known Home Medications 04/17/21 04/19/21 History Allergies Allergy/AdvReac Type Severity Reaction Status Date / Time Penicillins Allergy Intermediate Rash/Hives Verified 04/19/21 10:04 cefaclor [From Ceclor] Allergy Unknown Rash/Hives Verified 04/19/21 10:04 Surgical - Exam Vital Signs Temp Pulse Resp BP Pulse Ox 98.0 F 73 18 113/81 97 04/19/21 10:07 04/19/21 10:07 04/19/21 10:07 04/19/21 10:07 04/19/21 10:07 - General well developed, well nourished, no distress - Eyes PERRL - ENT normal pinna - Neck no masses - Respiratory normal expansion - Cardiovascular Rhythm: regular - Abdomen Abdomen: soft, non tender Assessment and Plan Assessment: Diarrhea. We'll perform colonoscopy
--- NOTE | 2021-04-19 11:28 | P.OP ---
Date of Procedure: 04/19/21 Preoperative Diagnosis: Diarrhea Postoperative Diagnosis: Normal colon, random rectal biopsy pathology pending Procedure(s) Performed: Colonoscopy Anesthesia: MAC Surgeon: Kevin Hagan Pathology: other (Rectum) Condition: stable Disposition: PACU Description of Procedure: Patient's placed on the endoscopy table in the lateral position. She received IV sedation. Digital rectal exam was performed which revealed no abnormalities. The flexible colonoscope was then placed patient anus and passed throughout the entire colon. The ileocecal valve was visualized. The cecum, ascending and transverse colon appeared normal. The descending and sigmoid colon appeared normal. Scope was then brought back the rectum and this appeared normal. However due the patient's symptoms of diarrhea a random rectal biopsies performed. The scope was withdrawn for patient.
[2021-04-19 11:32] VITALS: RESP 16
[2021-04-19 11:58] VITALS: BP 111/57; PULSE 71
== END 2021-04-19 12:19 | disposition home or self-care (01) ==
LOC: ORWHC2ENDO 09:51
PROVIDERS: ATTEND Surgery
DX: R19.7 Diarrhea, unspecified (principal); K21.9 Gastro-esophageal reflux disease without esophagitis; M19.90 Unspecified osteoarthritis, unspecified site; J45.990 Exercise induced bronchospasm; Z86.14 Personal history of Methicillin resistant Staphylococcus aureus infection; F41.9 Anxiety disorder, unspecified; Z98.891 History of uterine scar from previous surgery; Z90.49 Acquired absence of other specified parts of digestive tract; Z98.51 Tubal ligation status; Z98.890 Other specified postprocedural states; Z83.2 Family history of diseases of the blood and blood-forming organs and certain disorders involving the immune mechanism; Z88.1 Allergy status to other antibiotic agents; Z88.0 Allergy status to penicillin
CPT/HCPCS: 81025; 88305; 45380; J2704

== ENCOUNTER 2022-09-17 17:57 | Emergency (ER) | payer OTHER ==
[2022-09-17 18:26] VITALS: TEMP 97.9
[2022-09-17] MEDS ORDERED: SODIUM CHLORIDE 0.9% 1,000 ML IV STA (18:38)
--- NOTE | 2022-09-17 18:39 | ED ---
Chest Pain HPI - General Chief Complaint: Chest Pain Stated Complaint: Chest Pain Time Seen by Provider: 09/17/22 18:30 Source: patient, RN notes reviewed, old records reviewed Mode of arrival: wheelchair - History of Present Illness Initial Comments: This is a 37-year-old female to the emergency department for eval to chest pain chest pain left-sided chest pain stabbing to the back stabbing on the leg pain in the left leg with weakness, sharp pain that comes and goes with persistent chest pain currently. Occasionally near syncopal. But no prior episodes of syncope. Patient also having nausea and dizziness his been going on for a few hours today. Patient does states she was seen by cardiology does have a prior ER visit this month for similar symptoms. Patient was seen both in the emergency department as well as a manager rfid recently for similar symptoms. She is concern for blood clot arrhythmia heart attack with family history of the same. Patient is requesting both CK and CK-MB and she is only oriented troponin to the past. 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: chest pain, other (Left-sided chest pain pain in the back) -: hour(s) Onset: during rest, during exertion Pain Location: left chest Pain Radiation: back Severity: moderate Severity scale (1-10): 5 Quality: sharp Consistency: intermittent Improves With: nothing Worsens With: nothing Anginal Symptoms: sense of impending doom Other Symptoms: palpitations Treatments Prior to Arrival: none - Related Data Home Medications Medication Instructions Recorded Confirmed No Known Home Medications 04/17/21 04/19/21 Allergies Allergy/AdvReac Type Severity Reaction Status Date / Time Penicillins Allergy Intermediate Rash/Hives Verified 09/17/22 18:25 cefaclor [From Ceclor] Allergy Unknown Rash/Hives Verified 09/17/22 18:25 Review of Systems ROS Statement: Those systems with pertinent positive or pertinent negative responses have been documented in the HPI. ROS Other: All systems not noted in ROS Statement are negative. EKG Findings - EKG Comments: EKG Findings:: EKG is sinus 72 AR 182 QRS 137 QTC 430 - EKG Results: EKG: interpreted by ESME, not changed from: (Patient does have prior left bundle-branch block) Past Medical History Past Medical History: Asthma, GERD/Reflux, Osteoarthritis (OA) Additional Past Medical History / Comment(s): HX OF EXERCISE INDUCED ASTHMA., BULGING DISC, LOOSE STOOLS SINCE GALL BLADDER REMOVED. History of Any Multi-Drug Resistant Organisms: MRSA Date of last positivie culture/infection: 08/27/15 MDRO Source:: LEFT ARM Past Surgical History: Adenoidectomy, Section, Cholecystectomy, Tonsillectomy, Tubal Ligation Additional Past Surgical History / Comment(s): EGD, T & A A CHILD, BUNIONECTOMY X2, CERVICAL CONE BX. Past Anesthesia/Blood Transfusion Reactions: No Reported Reaction Past Psychological History: Anxiety Smoking Status: Never smoker Past Alcohol Use History: None Reported Past Drug Use History: None Reported - Past Family History Mother Family Medical History: No Reported History Additional Family Medical History / Comment(s): . Father Family Medical History: No Reported History Sister(s) Family Medical History: Blood Disorder Additional Family Medical History / Comment(s): ITP, SPLEEN REMOVED General Exam General appearance: alert, in no apparent distress, anxious Head exam: Present: atraumatic, normocephalic, normal inspection Eye exam: Present: normal appearance, PERRL, EOMI. Absent: scleral icterus, conjunctival injection, periorbital swelling ENT exam: Present: normal exam, mucous membranes moist Neck exam: Present: normal inspection. Absent: tenderness, meningismus, lymphadenopathy Respiratory exam: Present: normal lung sounds bilaterally. Absent: respiratory distress, wheezes, rales, rhonchi, stridor Cardiovascular Exam: Present: regular rate, normal rhythm, normal heart sounds. Absent: systolic murmur, diastolic murmur, rubs, gallop, clicks GI/Abdominal exam: Present: soft, normal bowel sounds. Absent: distended, tenderness, guarding, rebound, rigid Extremities exam: Present: normal inspection, full ROM, normal capillary refill. Absent: tenderness, pedal edema, joint swelling, calf tenderness Back exam: Present: normal inspection Neurological exam: Present: alert, oriented X3, CN II-XII intact Psychiatric exam: Present: normal affect, normal mood Skin exam: Present: warm, dry, intact, normal color. Absent: rash Course Vital Signs 09/17/22 09/17/22 18:21 22:27 Temperature 97.9 F Pulse Rate 81 86 Respiratory 18 16 Rate Blood Pressure 136/91 121/74 O2 Sat by Pulse 100 99 Oximetry - Reevaluation(s) Reevaluation #1: 09/17/22 19:13 Medical records reviewed Reevaluation #2: 09/17/22 19:13 Patient remains persistent symptoms here in the ER Reevaluation #3: Spoke patient regarding findings and questions answered Imaging Chest x-ray and CT angiogram chest interpreted by me are negative for acute disease Reevaluation #4: 09/17/22 19:13 Was pt. sent in by a medical professional or institution? @ -no Did you speak to anyone other than the patient for history? @ -no Did you review nursing and triage notes? @ -agree Were old charts reviewed? @ -yes Differential Diagnosis? @ -prior EKG interpreted by me (3pts min.)? @ -yes X-rays interpreted by me (1pt min.)? @ -yes CT interpreted by me (1pt min.)? @ -yes U/S interpreted by me (1pt. min.)? @ -no What testing was considered but not performed? (CT, X-rays, U/S, labs)? Why? @ -no What meds were considered but not given? Why? @ -no Did you discuss the management of the patient with other professionals? @ -no Did you reconcile home meds? @ -no Was smoking cessation discussed for >3mins.? @ -no Was critical care preformed (if so, how long)? @ -no Were there social determinants of health that impacted care today? How? (Homelessness, low income, unemployed, alcoholism, drug addiction, transportation, low edu. Level, literacy, decrease access to med. care, group home, rehab)? @ -no Was there de-escalation of care discussed even if they declined? (Discuss DNR or withdrawal of care, Hospice)? @ -no What co-morbidities impacted this encounter? (DM, HTN, Smoking, COPD, CAD, Cancer, CVA, Hep., AIDS, mental health diagnosis, sleep apnea, morbid obesity)? @ -none Was patient admitted / discharged? @ -37 female with nonspecific chest pain here in the emergency room and history of hiatal hernia no symptoms of reflux or gastritis, patient has normal EKG computed tomography scan troponin. Patient has multiple recent ER visits and cardiology evaluation for chest pain, remains with similar symptoms will continue follow-up with cardiology as an outpatient Discharge Undiagnosed new problem with uncertain prognosis? @ -no Drug Therapy requiring intensive monitoring for toxicity (Heparin, Nitro, Insulin, Cardizem)? @ -no Were any procedures done? @ -no Diagnosis/symptom? @ - Acute, or Chronic, or Acute on Chronic? @ -acute Uncomplicated (without systemic symptoms) or Complicated (systemic symptoms)? @ -complicated Side effects of treatment? @ -no Exacerbation, Progression, or Severe Exacerbation] @ -no Poses a threat to life or bodily function? @ -yes this ACS chest pain Reevaluation #5: 09/17/22 19:13 Differential Chest Pain: Stable Angina, Unstable Angina, STEMI, NSTEMI Aortic Dissection, Pneumothorax, Musculoskeletal, Esophageal Spasm GERD, Cholecystitis, Pancreatitis, Zoster, this is not meant to be an all-inclusive list. Chest Pain MDM - MDM 37 female with nonspecific chest pain here in the emergency room and history of hiatal hernia no symptoms of reflux or gastritis, patient has normal EKG computed tomography scan troponin. Patient has multiple recent ER visits and cardiology evaluation for chest pain, remains with similar symptoms will continue follow-up with cardiology as an outpatient Disposition Clinical Impression: Chest pain, Atypical chest pain Disposition: HOME SELF-CARE Condition: Fair Instructions (If sedation given, give patient instructions): Chest Pain (ED) Is patient prescribed a controlled substance at d/c from ED?: No Referrals: Lauren Potter DO [Primary Care Provider] - 1-2 days Leah Murray MD [STAFF PHYSICIAN] - 1-2 days Time of Disposition: 22:00
--- NOTE | 2022-09-17 18:57 | XR ---
EXAMINATION TYPE: XR chest 1V portable DATE OF EXAM: 09/17/2022 6:52 PM COMPARISON: none TECHNIQUE: XR chest 1V portable Frontal view of the chest. CLINICAL INDICATION:Female, 37 years old with history of cp; FINDINGS: Lungs/Pleura: There is no evidence of pleural effusion, focal consolidation, or pneumothorax. Pulmonary vascularity: Unremarkable. Heart/mediastinum: Cardiomediastinal silhouette is unremarkable. Musculoskeletal: No acute osseous pathology. IMPRESSION: No acute cardiopulmonary disease/process.
[2022-09-17 19:32] LABS: Basophils % (A) 0 %; Eosinophils # (A) 0.1 k/uL (0-0.7); Eosinophils % (A) 1 %; HCT 36.1 % (34.0-46.0); HGB 12.4 gm/dL (11.4-16.0); Lymphocytes % (A) 35 %; MCH 30.4 pg (25.0-35.0); MCHC 34.5 g/dL (31.0-37.0); MCV 88.2 fL (80.0-100.0); Mean Platelet Volume 7.8; Monocytes # (A) 0.5 k/uL (0-1.0); Monocytes % (A) 5 %; Neutrophils # (A) 4.8 k/uL (1.3-7.7); Neutrophils % (A) 56 %; Platelet Count 277 k/uL (150-450); RBC 4.09 m/uL (3.80-5.40); RDW 14.8 % (11.5-15.5); WBC 8.5 k/uL (3.8-10.6)
[2022-09-17 19:36] LABS: INR 0.9 (<1.2); Prothrombin Time 9.5 sec (9.0-12.0)
[2022-09-17 19:53] LABS: Partial Thromboplastin Time 21.8 sec (22.0-30.0)
[2022-09-17 19:57] LABS: Appearance,Urine Cloudy (Clear); Bilirubin,Urine Negative (Negative); Blood,Urine Negative (Negative); Color,Urine Light Yellow; Glucose,Urine (UA) Negative (Negative); Ketones,Urine Negative (Negative); Leukocyte Esterase,Urine Trace (Negative); Mucus,Urine Rare /hpf; Nitrite,Urine Negative (Negative); PH, Urine 5.5 (5.0-8.0); Protein,Urine Negative (Negative); RBC,Urine 1 /hpf (0-5); Squamous Epithelial Cell,Urine 10 /hpf (0-4); Urobilinogen,Urine <2.0 mg/dL (<2.0); WBC,Urine 3 /hpf (0-5)
[2022-09-17 20:15] LABS: ALT 24 U/L (4-34); AST 29 U/L (14-36); African American GFR (CKD) >90 (>60 ml/min/1.73 sqM); Albumin 4.2 g/dL (3.5-5.0); Alkaline Phosphatase 180 U/L (38-126); Anion Gap 10 mmol/L; Blood Urea Nitrogen 9 mg/dL (7-17); Calcium 8.7 mg/dL (8.4-10.2); Carbon Dioxide 22 mmol/L (22-30); Chloride 103 mmol/L (98-107); Glucose 130 mg/dL (74-99); Magnesium 1.9 mg/dL (1.6-2.3); Non-African American GFR(CKD) >90 (>60 ml/min/1.73 sqM); Phosphorus 3.4 mg/dL (2.5-4.5); Sodium 135 mmol/L (137-145); Total Bilirubin 0.5 mg/dL (0.2-1.3); Total Protein 7.9 g/dL (6.3-8.2)
[2022-09-17 20:19] LABS: Potassium 4.1 mmol/L (3.5-5.1)
--- NOTE | 2022-09-17 21:29 | CT ---
EXAMINATION TYPE: CT angio chest CT DLP: 535.3. mGycm, Automated exposure control for dose reduction was used. DATE OF EXAM: 09/17/2022 9:02 PM COMPARISON: Chest radiograph from same day. CLINICAL INDICATION:Female, 37 years old with history of cp; chest pain and elevated d-dimer TECHNIQUE/CONTRAST: CTA scan of the thorax is performed with IV Contrast, patient injected with 85ml mL of Isovue 370, pu lmonary embolism protocol. MIP images are created and reviewed these are created on a separate works tation.. FINDINGS: Pulmonary Artery: There is no evidence for a filling defect within the pulmonary vasculature to sugge st acute pulmonary embolism. The pulmonary artery is of normal size. Lungs/Pleura: No evidence of focal consolidation, pleural effusion or pneumothorax. Airway: Large airways are patent. Heart: Heart is within normal limits for size. Vasculature: No evidence of aortic aneurysm. Mediastinum: No gross evidence of adenopathy. Musculoskeletal: No acute osseous abnormalities Soft Tissues: Unremarkable. Lower neck: No significant findings. Upper Abdomen: Surgical clips within the gallbladder fossa. Small hiatal hernia. Postsurgical changes at the gastroesophageal junction. IMPRESSION: 1. No evidence of pulmonary embolism. 2. Postsurgical changes gastroesophageal junction with small hiatal hernia.
[2022-09-17 22:29] VITALS: BP 121/74; PULSE 86; RESP 16
== END 2022-09-17 22:28 | disposition home or self-care (01) ==
LOC: EC 17:57
DX: R07.89 Other chest pain (principal); J45.909 Unspecified asthma, uncomplicated; Z79.899 Other long term (current) drug therapy; Z88.0 Allergy status to penicillin; Z88.1 Allergy status to other antibiotic agents; Z90.49 Acquired absence of other specified parts of digestive tract
CPT/HCPCS: 36415; 93005; 83880; 80053; 82550; 82553; 83605; 83735; 84100; 84484; 85025; 85610; 85730; 81001; 71045; 71275; 99285; 96360; 96361; Q9967

== ENCOUNTER → 2023-01-30 | Outpatient (CLI) | payer OTHER ==
--- NOTE | 2023-02-04 08:06 | CT ---
EXAMINATION TYPE: CT chest w con DATE OF EXAM: 01/30/2023 COMPARISON: 09/17/2022 HISTORY: lung nodule CT DLP: 549.8 mGycm Automated exposure control for dose reduction was used. CONTRAST: CT scan of the chest is performed with IV Contrast, patient injected with 100 mL of Isovue 300. FINDINGS: LUNGS: 3 mm pulmonary nodules image 28 right upper lobe and right lower lobe. No additional nodules p resent. Lungs are free of infiltrate or volume loss. There is no pleural effusion or pneumothorax s een. The tracheobronchial tree is patent. MEDIASTINUM: There are no greater than 1 cm hilar or mediastinal lymph nodes. No pericardial effusi on is seen. Thoracic aorta is of normal caliber. The heart is not enlarged. UPPER ABDOMEN: No significant abnormality appreciated. OTHER: Postsurgical changes GE junction. Changes of prior cholecystectomy. Mild fatty hepatic infilt ration. IMPRESSION: 3 mm pulmonary nodules image 28 right upper lobe and right lower lobe. No additional nodules present.
== END | disposition home or self-care (01) ==
LOC: RADCTMAIN 15:58
PROVIDERS: ATTEND Family Medicine
DX: R91.8 Other nonspecific abnormal finding of lung field (principal)
CPT/HCPCS: 71260; Q9967

== ENCOUNTER 2024-01-10 13:25 | Emergency (ER) | payer OTHER ==
--- NOTE | 2024-01-10 14:15 | ED ---
URI HPI - General Stated Complaint: R eye pain Source: patient - Related Data Home Medications Medication Instructions Recorded Confirmed No Known Home Medications 04/17/21 04/19/21 Allergies Allergy/AdvReac Type Severity Reaction Status Date / Time Penicillins Allergy Intermediate Rash/Hives Verified 09/17/22 18:25 cefaclor [From Ceclor] Allergy Unknown Rash/Hives Verified 09/17/22 18:25 Review of Systems ROS Statement: Those systems with pertinent positive or pertinent negative responses have been documented in the HPI. ROS Other: All systems not noted in ROS Statement are negative. Past Medical History Past Medical History: Asthma, GERD/Reflux, Osteoarthritis (OA) Additional Past Medical History / Comment(s): HX OF EXERCISE INDUCED ASTHMA., BULGING DISC, LOOSE STOOLS SINCE GALL BLADDER REMOVED. History of Any Multi-Drug Resistant Organisms: MRSA Date of last positivie culture/infection: 08/27/15 MDRO Source:: LEFT ARM Past Surgical History: Adenoidectomy, Section, Cholecystectomy, Tonsillectomy, Tubal Ligation Additional Past Surgical History / Comment(s): EGD, T & A A CHILD, BUNIONECTOMY X2, CERVICAL CONE BX. Past Anesthesia/Blood Transfusion Reactions: No Reported Reaction Past Psychological History: Anxiety Smoking Status: Never smoker Past Alcohol Use History: None Reported Past Drug Use History: None Reported - Past Family History Mother Family Medical History: No Reported History Additional Family Medical History / Comment(s): . Father Family Medical History: No Reported History Sister(s) Family Medical History: Blood Disorder Additional Family Medical History / Comment(s): ITP, SPLEEN REMOVED Disposition Referrals: Leatha Will DO [Primary Care Provider] - 1-2 days
[2024-01-10 14:59] VITALS: BP 105/72; PULSE 69; RESP 20; TEMP 98.5
--- NOTE | 2024-01-10 15:47 | ED ---
Eye Problem HPI - General Chief complaint: Eye Problems Stated complaint: R eye pain Source: patient, RN notes reviewed, old records reviewed Mode of arrival: ambulatory Limitations: no limitations - History of Present Illness Initial comments: This is a 38-year-old female to the ER for evaluation of right eye swelling and right eye pain. Right eye swelling right eye drainage, blurry vision and both oral and antibiotic drops without improvement MD chief complaint: eye pain, eye redness, vision change -: days(s) Onset Description: gradual Location: right eye Place: home If Injury: none Eye Symptoms: burning, redness, pain, itching, discharge, blurry vision Severity: moderate Severity scale (1-10): 5 If Pain, Quality: sharp Consistency: constant Context: recent uri Associated Symptoms: none Treatments Prior to Arrival: none - Related Data Home Medications Medication Instructions Recorded Confirmed No Known Home Medications 04/17/21 04/19/21 Allergies Allergy/AdvReac Type Severity Reaction Status Date / Time Penicillins Allergy Intermediate Rash/Hives Verified 01/10/24 14:59 cefaclor [From Ceclor] Allergy Unknown Rash/Hives Verified 01/10/24 14:59 Review of Systems ROS Statement: Those systems with pertinent positive or pertinent negative responses have been documented in the HPI. ROS Other: All systems not noted in ROS Statement are negative. Past Medical History Past Medical History: Asthma, GERD/Reflux, Osteoarthritis (OA) Additional Past Medical History / Comment(s): HX OF EXERCISE INDUCED ASTHMA., BULGING DISC, LOOSE STOOLS SINCE GALL BLADDER REMOVED. History of Any Multi-Drug Resistant Organisms: MRSA Date of last positivie culture/infection: 08/27/15 MDRO Source:: LEFT ARM Past Surgical History: Adenoidectomy, Section, Cholecystectomy, Tonsillectomy, Tubal Ligation Additional Past Surgical History / Comment(s): EGD, T & A A CHILD, BUNIONECTOMY X2, CERVICAL CONE BX. Past Anesthesia/Blood Transfusion Reactions: No Reported Reaction Past Psychological History: Anxiety Smoking Status: Never smoker Past Alcohol Use History: None Reported Past Drug Use History: None Reported - Past Family History Mother Family Medical History: No Reported History Additional Family Medical History / Comment(s): . Father Family Medical History: No Reported History Sister(s) Family Medical History: Blood Disorder Additional Family Medical History / Comment(s): ITP, SPLEEN REMOVED General Exam Limitations: no limitations General appearance: alert, in no apparent distress Head exam: Present: atraumatic, normocephalic, normal inspection Eye exam: Present: normal appearance, conjunctival injection. Absent: scleral icterus, periorbital swelling ENT exam: Present: normal exam, mucous membranes moist Neck exam: Present: normal inspection. Absent: tenderness, meningismus, lymphadenopathy Respiratory exam: Present: normal lung sounds bilaterally. Absent: respiratory distress, wheezes, rales, rhonchi, stridor Cardiovascular Exam: Present: regular rate, normal rhythm, normal heart sounds. Absent: systolic murmur, diastolic murmur, rubs, gallop, clicks GI/Abdominal exam: Present: soft, normal bowel sounds. Absent: distended, tenderness, guarding, rebound, rigid Extremities exam: Present: normal inspection, full ROM, normal capillary refill. Absent: tenderness, pedal edema, joint swelling, calf tenderness Back exam: Present: normal inspection Neurological exam: Present: alert, oriented X3, CN II-XII intact Psychiatric exam: Present: normal affect, normal mood Skin exam: Present: warm, dry, intact, normal color. Absent: rash Course Vital Signs 01/10/24 14:57 Temperature 98.5 F Pulse Rate 69 Respiratory 20 Rate Blood Pressure 105/72 O2 Sat by Pulse 99 Oximetry - Reevaluation(s) Reevaluation #1: 01/10/24 15:50 Medical records reviewed Reevaluation #2: 01/10/24 15:50 Patient symptoms unchanged Reevaluation #3: 01/10/24 15:50 Patient informed of results and questions answered Reevaluation #4: Was pt. sent in by a medical professional or institution (, PA, MANAGER INFUSION, urgent care, hospital, or fdc...) When possible be specific @ -no Did you speak to anyone other than the patient for history (EMS, parent, family, police, friend...)? What history was obtained from this source @ -no Did you review nursing and triage notes (agree or disagree)? Why? @ -agree Are old charts reviewed (outside hosp., previous admission, EMS record, old EKG, old radiological studies, urgent care reports/EKG's, fdc records)? Report findings @ -yes Differential Diagnosis (chest pain, altered mental status, abdominal pain women, abdominal pain men, vaginal bleeding, weakness, fever, dyspnea, syncope, headache, dizziness, GI bleed, back pain, seizure, CVA, palpatations, mental health, musculoskeletal)? @ -prior EKG interpreted by me (3pts min.). @ -yes X-rays interpreted by me (1pt min.). @ -yes negative for acute disease CT interpreted by me (1pt min.). @ -no U/S interpreted by me (1pt. min.). @ -no What testing was considered but not performed or refused? (CT, X-rays, U/S, labs)? Why? @ -none What meds were considered but not given or refused? Why? @ -none Did you discuss the management of the patient with other professionals (professionals i.e. , PA, MANAGER INFUSION, lab, RT, psych nurse, social science research assistant, exec. creative director, teacher, bsa/aml compliance officer, piano case maker)? Give summary @ -no Was smoking cessation discussed for >3mins.? @ -no Was critical care preformed (if so, how long)? @ -no Were there social determinants of health that impacted care today? How? (Homelessness, low income, unemployed, alcoholism, drug addiction, transportation, low edu. Level, literacy, decrease access to med. care, halfway, rehab)? @ -none Was there de-escalation of care discussed even if they declined (Discuss DNR or withdrawal of care, Hospice)? DNR status @ -no What co-morbidities impacted this encounter? (DM, HTN, Smoking, COPD, CAD, Cancer, CVA, ARF, Chemo, Hep., AIDS, mental health diagnosis, sleep apnea, morbid obesity)? @ -none Was patient admitted / discharged? Hospital course, mention meds given and route, prescriptions, significant lab abnormalities, going to OR and other pertinent info. @ - Undiagnosed new problem with uncertain prognosis? @ -no Drug Therapy requiring intensive monitoring for toxicity (Heparin, Nitro, Insulin, Cardizem)? @ -no Were any procedures done? @ -no Diagnosis/symptom? @ - Acute, or Chronic, or Acute on Chronic? @ -Acute Uncomplicated (without systemic symptoms) or Complicated (systemic symptoms)? @ -Complicated Side effects of treatment? @ -no Exacerbation, Progression, or Severe Exacerbation? @ -exacerbation Poses a threat to life or bodily function? How? (Chest pain, [place], [place], pneumonia, PE, COPD, DKA, ARF, appy, cholecystitis, CVA, Diverticulitis, Homicidal, Suicidal, threat to staff... and all critical care pts) @ -yes Medical Decision Making - Medical Decision Making 38 female with conjunctivitis right eye bacterial conjunctivitis will change eyedrops, patient can be discharged home - Radiology Data Radiology results: report reviewed (CT orbits appear negative for orbital cellulitis), image reviewed Disposition Clinical Impression: Bacterial conjunctivitis, Conjunctivitis, right eye Disposition: HOME SELF-CARE Is patient prescribed a controlled substance at d/c from ED?: No Referrals: Leatha Will DO [Primary Care Provider] - 1-2 days Everardo Naranjo MD [STAFF PHYSICIAN] - 1-2 days Time of Disposition: 16:30
[2024-01-10] MEDS: TOBRAMYCIN 0.3% OPHTH OINT 3.5 GM TUBE RIGHT EYE STA (16:15)
[2024-01-10] MEDS: POLYMYXIN B-TRIMETHOPRIM SULF (10,000-1) OPHTH DROPS 10 ML BTL RIGHT EYE STA (16:18)
--- NOTE | 2024-01-10 16:31 | CT ---
EXAMINATION TYPE: CT orbits wo con DATE OF EXAM: 01/10/2024 4:04 PM COMPARISON: None available.. CLINICAL INDICATION: Female, 38 years old with history of r eye pain; PHH, Right eye pain and redness . TECHNIQUE: Orbits: Axial CT with coronal and sagittal reformats through the orbits. No IV or oral contrast was u tilized. CT DLP: 222 mGycm, Automated exposure control for dose reduction was used. Findings: Orbital Contents: * Globes: Normal. * Preseptal Tissues: Normal. * Intraconal Structures: Normal. * Extraconal Structures and Lacrimal Glands: Normal. * Orbital [place]: Normal. Sella Turcica and Cavernous Sinuses: The sella turcica and cavernous sinus regions are intact and sym metric. Visualized Brain Parenchyma: Normal. Paranasal Sinuses and Surrounding Structures: Partially visualized mucous retention cyst in the left maxillary sinus. The mastoid air cells and skull base is intact. Musculoskeletal: No evidence of fracture. Other: Soft tissues are within normal limits. IMPRESSION: No evidence of orbital irregularity, orbital cellulitis or mass. [facility], , 01/10/2024 4:28 PM
== END 2024-01-10 17:04 | disposition home or self-care (01) ==
LOC: EC 13:25
DX: H10.89 Other conjunctivitis (principal); Z88.0 Allergy status to penicillin; Z88.1 Allergy status to other antibiotic agents
CPT/HCPCS: 70480; 99283